=== PATIENT | female | born 1945 | race African-American/Black ===

== ENCOUNTER 2016-03-26 12:48 | Emergency (ER) | payer OTHER, MEDICAID ==
[~2016-03-26] VITALS: Ht 157.5 cm; Wt 70.3 kg
[2016-03-26 12:48] VITALS: BP 142/48; PULSE 86; RESP 16; TEMP 98.2; O2SAT 93
[2016-03-26] MEDS ORDERED: LIDOCAINE/EPI 1% 1:100000 20 ML VIAL INJ ONE (13:15)
[2016-03-26 13:55] LABS: BASOPHILS % (AUTO) 0.5 % (0.0-2.0); EOSINOPHILS # (AUTO) 0.3 K/uL (0.0-0.4); HEMATOCRIT 32.1 % (36-48); HEMOGLOBIN 10.6 g/dL (12.0-16.0); LYMPHOCYTES # (AUTO) 0.5 K/uL (1.0-5.5); LYMPHOCYTES % (AUTO) 7.9 % (20.5-51.5); MEAN CORPUSCULAR HEMOGLOBIN 30 pg (27-31); MEAN CORPUSCULAR HGB CONC 33 % (32-36); MEAN CORPUSCULAR VOLUME 90 fL (79.0-98.0); MONOCYTES # (AUTO) 0.8 K/uL (0.0-1.0); MONOCYTES % (AUTO) 12.1 % (1.7-9.3); NEUTROPHILS # (AUTO) 5.2 K/uL (1.8-7.7); NEUTROPHILS % (AUTO) 74.5 % (40.0-70.0); PLATELET COUNT (AUTO) 194 K/uL (130-430); RED BLOOD CELL COUNT(AUTO) 3.56 MIL/uL (4.2-6.2); RED CELL DISTRIBUTION WIDTH 18.7 % (9.0-15.0); WHITE BLOOD COUNT (AUTO) 6.8 K/uL (4.8-10.8)
[2016-03-26 13:58] LABS: CALCIUM 9.2 mg/dL (8.4-11.0); CREATININE 3.49 mg/dL (0.55-1.30); POTASSIUM 4.6 mmol/L (3.5-5.1)
[2016-03-26 15:43] LABS: INR 1.2 (0.8-1.2); PROTHROMBIN TIME 12.9 SECS (9.5-12.5)
[2016-03-26 18:00] VITALS: BP 122/51; PULSE 84; RESP 16; TEMP 98.2; O2SAT 96
== END 2016-03-26 18:00 | disposition short-term general hospital (02) ==
LOC: SED 12:48
DX: T82.838A Hemorrhage due to vascular prosthetic devices, implants and grafts, initial encounter (principal); N18.6 End stage renal disease; Z99.2 Dependence on renal dialysis
CPT/HCPCS: 36415; 80048; 85025; 85610-TC; 85730-TC; 93005; 99285

== ENCOUNTER 2016-03-30 07:04 | Inpatient (IN) | payer OTHER, MEDICAID ==
[~2016-03-30] VITALS: Ht 157.5 cm; Wt 49.9 kg
[2016-03-30 07:04] VITALS: BP 117/47; PULSE 85; RESP 17; TEMP 96.3; O2SAT 95
--- NOTE | 2016-03-30 07:04 | NUR ---
SEKOU Bolanos from [facility] for low blood sugar, 29. Give amp D50 by EMS, with improvement to 129. Pt placed in bed 5
--- NOTE | 2016-03-30 07:16 | NUR ---
Pt BIB ALS and placed to ER bed 05, placed on front desk monitor. Pt s/p Hypoglycemia, initial bs 29, given D50 in ambulance. Pt currently AAOx2, baseline for pt. Even and non-labored respirations, BBS clear. BS currently 135. Denies LOC, C/P, or SOB. Pt's at bedside.
--- NOTE | 2016-03-30 07:16 | NUR ---
Note undone in EDM - 03/30/16 at 1028 by PERI Pt BIB ALS and placed to ER bed 05, placed on cardiac monitor technician. Pt s/p Hypoglycemia, initial bs 29, given D50 in ambulance. Pt currently AAOx4, even and non-labored respirations, BBS clear. BS currently 135. Denies LOC, C/P, or SOB. Pt's at bedside.
--- NOTE | 2016-03-30 07:25 | NUR ---
Dr. Ramirez at bedside to assess pt.
--- NOTE | 2016-03-30 07:25 | NUR ---
Dr. Bañuelos at bedside for evaluation
--- NOTE | 2016-03-30 07:30 | NUR ---
Meal tray provided. at bedside to assist.
--- NOTE | 2016-03-30 07:40 | NUR ---
Lab at bedside to draw blood specimen.
[2016-03-30 08:09] LABS: BASOPHILS # (AUTO) 0.1 K/uL (0.0-0.2); BASOPHILS % (AUTO) 0.6 % (0.0-2.0); EOSINOPHILS % (AUTO) 0.2 % (0.0-4.0); HEMATOCRIT 42.8 % (36-48); HEMOGLOBIN 13.7 g/dL (12.0-16.0); LYMPHOCYTES # (AUTO) 0.7 K/uL (1.0-5.5); LYMPHOCYTES % (AUTO) 6.5 % (20.5-51.5); MEAN CORPUSCULAR HEMOGLOBIN 29 pg (27-31); MEAN CORPUSCULAR HGB CONC 32 % (32-36); MEAN CORPUSCULAR VOLUME 90 fL (79.0-98.0); MONOCYTES # (AUTO) 0.8 K/uL (0.0-1.0); MONOCYTES % (AUTO) 7.6 % (1.7-9.3); NEUTROPHILS # (AUTO) 9.1 K/uL (1.8-7.7); NEUTROPHILS % (AUTO) 85.1 % (40.0-70.0); PLATELET COUNT (AUTO) 201 K/uL (130-430); RED BLOOD CELL COUNT(AUTO) 4.74 MIL/uL (4.2-6.2); RED CELL DISTRIBUTION WIDTH 18.3 % (9.0-15.0); WHITE BLOOD COUNT (AUTO) 10.7 K/uL (4.8-10.8)
[2016-03-30 08:14] LABS: ANION GAP 13 (5-15); CALCIUM 9.9 mg/dL (8.4-11.0); CHLORIDE 96 mmol/L (98-107); GLUCOSE 118 mg/dL (70-99); INR 1.1 (0.8-1.2); POTASSIUM 5.6 mmol/L (3.5-5.1); SODIUM SERUM 136 mmol/L (136-145); UREA NITROGEN, BLOOD 44 mg/dL (8-21)
[2016-03-30 08:25] LABS: GFR AFRICAN AMERICAN 10 mL/min (>90)
[2016-03-30 08:30] LABS: ALANINE AMINOTRANSFERASE 33 U/L (12-78); ALBUMIN 4.6 g/dL (3.4-4.8); ASPARTATE AMINOTRANSFERASE 26 U/L (10-37); FREE T4 (FREE THYROXINE) 1.2 ng/dL (0.6-1.6); TOTAL BILIRUBIN 0.5 mg/dL (0.0-1.0); TOTAL PROTEIN, SERUM 9.1 g/dL (6.4-8.3)
[2016-03-30 08:31] LABS: ALCOHOL, BLOOD < 3 mg/dL (<10)
--- NOTE | 2016-03-30 09:00 | NUR ---
Pt resting calmly, even and non-labored respirations. Denies c/o pain or discomfort.
[2016-03-30] MEDS ORDERED: ASPIRIN 81 MG TAB.CHEW PO ONE (10:00)
[2016-03-30] MEDS ORDERED: BISACODYL 5 MG TABLET.DR (DULCOLAX) PO ONE (10:15)
--- NOTE | 2016-03-30 10:26 | NUR ---
Patient will be admitted to care of Dr. Rodriguez. Admitted to Med/Surg unit. Will go to room 134A. Summary report printed. Report given to YONATAHN Hernandez.
--- NOTE | 2016-03-30 10:29 | NUR ---
ADMISSION NOTE Received patient from ER via gurney. Patient admitted with diagnosis of ESRD. Patient is awake, alert, oriented X 1-2. Patient oriented to hospital room, call light, toileting, pain management and safety-teach back done. Patient informed that Mary will be Med/Surg nurse and that their room number is 134A. Personal belongings checked and Belongings List documented. Call light within reach.
[2016-03-30 10:42] VITALS: BP 154/81; PULSE 87; RESP 17; TEMP 96.6; O2SAT 95
[2016-03-30] MEDS ORDERED: GLUCOSE 15 GM GEL (in 37.5 GM TUBE) PO PRN ×2 (10:45)
[2016-03-30] MEDS ORDERED: DEXTROSE 50%-WATER 50 ML DISP.SYRIN IVP PRN ×2 (10:45)
[2016-03-30] MEDS ORDERED: ASPI-859 PO (11:14)
[2016-03-30] MEDS ORDERED: LOSA100T11 PO (11:14)
[2016-03-30] MEDS ORDERED: CALC667T5 PO (11:14)
[2016-03-30] MEDS ORDERED: HYDR100T25 PO (11:14)
[2016-03-30] MEDS ORDERED: SSREG SUBCUT (11:14)
[2016-03-30] MEDS ORDERED: BISA-79 PO (11:14)
[2016-03-30] MEDS ORDERED: INSU100V9 SUBCUT (11:14)
[2016-03-30] MEDS ORDERED: NATE120T PO (11:14)
[2016-03-30] MEDS ORDERED: NIFE60TA7 PO (11:14)
[2016-03-30] MEDS ORDERED: LACT10SO6 PO (11:14)
[2016-03-30] MEDS ORDERED: CLON0.3T PO (11:14)
[2016-03-30] MEDS ORDERED: DONE10TA37 PO (11:14)
[2016-03-30] MEDS ORDERED: CARV6.2554 PO (11:14)
[2016-03-30] MEDS ORDERED: MINO2.5T PO (11:14)
[2016-03-30] MEDS ORDERED: ATOR10TA68 PO (11:14)
[2016-03-30] MEDS ORDERED: OMEP20CA10 PO (11:14)
--- NOTE | 2016-03-30 11:22 | NUR ---
CONSULTATION WAS CALLED [phone] FOR DOCTOR MEDARDO , DOCTOR COVERING IS DEEJAY THE REASON FOR CONSUL IS ESRD SPOKE TO JÚNIOR
--- NOTE | 2016-03-30 11:25 | NUR ---
Rounds: Pt laying flat in bed and sleeping in bed. No acute signs of distress noted. Pt is arousbale to name and firm tapping. Pt remains confused A&Ox1 to name. Fall precautions in place. Call light in reach. Bed alarm on. Continue to monitor.
[2016-03-30 12:00] VITALS: BP 158/75; PULSE 84; RESP 20; TEMP 96.9; O2SAT 97
--- NOTE | 2016-03-30 13:20 | NUR ---
Rounds: Pt sitting up in bed and eating lunch with full assist from PHARMACY OPERATIONS SPECIALIST. Pt is able to swallow well at this time. No BM noted. Call light in reach. Continue to monitor.
[2016-03-30] MEDS ORDERED: ONDANSETRON HCL 4 MG/2 ML VIAL IVP PRN (15:15)
[2016-03-30] MEDS ORDERED: MORPHINE 2 MG/ML INJ. SYRINGE IVP PRN (15:15)
[2016-03-30] MEDS ORDERED: POTASSIUM CHLORIDE 10 MEQ TAB.PRT.SR PO PRN (15:15)
[2016-03-30] MEDS ORDERED: BISACODYL 5 MG TABLET.DR (DULCOLAX) PO PRN (15:15)
[2016-03-30] MEDS ORDERED: ACETAMINOPHEN 325 MG TABLET PO PRN (15:15)
[2016-03-30] MEDS ORDERED: MAGNESIUM SULFATE 50 ML IV PRN (15:15)
[2016-03-30] MEDS ORDERED: LORazepam 2 MG/ML VIAL IVP PRN (15:15)
[2016-03-30] MEDS ORDERED: DOCUSATE SODIUM 100 MG CAPSULE PO PRN (15:15)
--- NOTE | 2016-03-30 15:39 | NUR ---
consultation was called [phone] for doctor jon miller chf, elev trop and spoke to vesta
--- NOTE | 2016-03-30 15:40 | NUR ---
Rounds: Pt sitting semi-fowlers in bed. No acute signs of distress noted. Pt moved to 132A. Tolerates well. Denies pain. Call light in reach.
[2016-03-30 16:00] VITALS: BP 121/75; PULSE 98; RESP 18; TEMP 98; O2SAT 93
[2016-03-30] MEDS: NATEGLINIDE 120 MG TABLET PO SCH (17:20)
[2016-03-30] MEDS: CALCIUM ACETATE 667 MG CAP PO SCH (17:20)
[2016-03-30] MEDS: INSULIN REGULAR, HUMAN 100 UNITS/ML, 10 ML VIAL (novoLIN R) SUBCUT PRN ×2 (17:31→20:49)
--- NOTE | 2016-03-30 17:50 | NUR ---
Rounds: Pt sitting semi-fowlers in bed. No acute signs of distress noted. Dialysis in progress. Fall precautions in place. Blood sugar checked and coverage given. Continue to monitor.
[2016-03-30] MEDS ORDERED: DONEPEZIL HCL 5 MG TABLET (ARICEPT) PO SCH (18:00)
--- NOTE | 2016-03-30 18:55 | NUR ---
Rounds: Pt has BM. Cleaned and repositioned in bed. No acute signs of distress noted. Call light in reach. No acute signs of bleeding noted to LUE AV shunt. Call light in reach. Endorse plan of care to NOC RN.
[2016-03-30 19:40] VITALS: BP 172/79; PULSE 111; RESP 20; TEMP 98.1; O2SAT 97
--- NOTE | 2016-03-30 19:40 | NUR ---
INITIAL NOTES; HEMODIALYSIS JUST COMPLETED, REMOVED 2 LITER BY GARCIA-NURSE AT BEDSIDE - Pt is a/ox1, confused. Vital signs 98.1, 20, 111, 172/79, M9YAE=61% R/A. NOany pain,sob,or any acute distress this time. Lung sounds clear throughout all lobes. Left upper arm AV shunt both thrill and bruits present. Abdomen soft & nondistended, bs present. IV site of rt a/c patent, no s/s any infiltration noted. Jose lower pedis present upon palp. Fall precaution in place. All safety measures in place. Unable to discuss poc due to aloc,no family is at bedside. All safety measures in place. Fall precaution in place. Bed alarmed,low position,side rails x3. Place near Nurses' station. Call light w/in reach. Continue to monitor pt.
--- NOTE | 2016-03-30 19:54 | NUR ---
INCONTINENT OF LARGER SOFT BOWEL MOVT -PROVIDED PERINEAL CARE AND CHANGED ALL LINEN,SHEET, AND GOWN. NOW, PT IS CLEANED AND DRY.
--- NOTE | 2016-03-30 20:13 | NUR ---
PAGED PAGED HECTOR HORTA AT [phone] SPOKE WITH DARRAIN.
--- NOTE | 2016-03-30 20:14 | NUR ---
DR. GREGG INFORMED AND AWARED OF ELEVATED TROPONIN=0.324, NO FURTHER ODER PER MD THIS TIME.
[2016-03-30] MEDS: hydrALAZINE HCL 25 MG TABLET PO SCH (20:44)
[2016-03-30] MEDS: cloNIDine HCL 0.1 MG TABLET PO SCH (20:44)
[2016-03-30] MEDS: CARVEDILOL 6.25 MG TABLET (COREG) PO SCH (20:45)
[2016-03-30] MEDS: MINOXIDIL 10 MG TABLET (LONITEN) PO SCH (20:45)
--- NOTE | 2016-03-30 20:45 | NUR ---
ROUNDS; -Gave po medications crushed with applesauce, pt tolerated. Fall precaution in place. All safety measures in place. All safety measures in place. Fall precaution in place. Bed alarmed,low position,side rails x3. Place near Nurses' station. Call light w/in reach. Continue to monitor pt.
[2016-03-30] MEDS: HEPARIN SODIUM,PORCINE 5000 UNITS/ML VIAL SUBCUT SCH (20:46)
[2016-03-30] MEDS ORDERED: ZOLPIDEM TARTRATE 5 MG TABLET PO PRN (21:00)
--- NOTE | 2016-03-30 22:35 | NUR ---
AGITATION -GAVE ATIVAN 2MG IVP. PT IS AGITATING. ALL SAFETY MEASURES IN PLACE. CALL LIGHT W/IN REACH. CONTINUE TO MONITOR PT.
--- NOTE | 2016-03-30 23:50 | NUR ---
ROUNDS; -Pt is resting. No s/s any acute distress noted. Fall precaution in place. All safety measures in place. All safety measures in place. Fall precaution in place. Bed alarmed,low position,side rails x3. Place near Nurses' station. Call light w/in reach. Continue to monitor pt.
[2016-03-31] VITALS: BP 118/55; PULSE 94; RESP 16; TEMP 97.6; O2SAT 90
[2016-03-31 04:00] VITALS: BP 101/53; PULSE 88; RESP 16; TEMP 96.9; O2SAT 100
--- NOTE | 2016-03-31 05:42 | NUR ---
ROUNDS;BLOOD SUGAR IS 120-NO SSI COVERAGE-INCONTINENT OF LARGE SOFT BOWEL MOVT -Pt awakes, confused. Dominique and Sugey provided perineal care.Now, pt is cleaned and dry. No s/s any acute distress noted. Fall precaution in place. All safety measures in place. All safety measures in place. Fall precaution in place. Bed alarmed,low position,side rails x3. Place near Nurses' station. Call light w/in reach. Continue to monitor pt.
[2016-03-31] MEDS: NATEGLINIDE 120 MG TABLET PO SCH ×2 (06:32→11:45)
--- NOTE | 2016-03-31 06:53 | NUR ---
CLOSING NOTES; - Pt is resting. No s/s any pain,sob,or any acute distress this time. Left upper arm AV shunt. IV site of rt a/c patent, no s/s any infiltration noted. All safety measures in place. Fall precaution in place. Bed alarmed,low position,side rails x3. Place near Nurses' station. Call light w/in reach.
[2016-03-31 07:41] LABS: CREATININE 4.2 mg/dL (0.55-1.30); POTASSIUM 4.4 mmol/L (3.5-5.1)
[2016-03-31 07:53] LABS: BASOPHILS # (AUTO) 0.1 K/uL (0.0-0.2); BASOPHILS % (AUTO) 0.8 % (0.0-2.0); EOSINOPHILS # (AUTO) 0.3 K/uL (0.0-0.4); HEMATOCRIT 33.7 % (36-48); HEMOGLOBIN 11.2 g/dL (12.0-16.0); LYMPHOCYTES # (AUTO) 0.9 K/uL (1.0-5.5); MEAN CORPUSCULAR HEMOGLOBIN 30 pg (27-31); MEAN CORPUSCULAR HGB CONC 33 % (32-36); MEAN CORPUSCULAR VOLUME 90 fL (79.0-98.0); MONOCYTES # (AUTO) 0.9 K/uL (0.0-1.0); MONOCYTES % (AUTO) 9.7 % (1.7-9.3); NEUTROPHILS # (AUTO) 7.1 K/uL (1.8-7.7); NEUTROPHILS % (AUTO) 76.5 % (40.0-70.0); PLATELET COUNT (AUTO) 204 K/uL (130-430); RED BLOOD CELL COUNT(AUTO) 3.73 MIL/uL (4.2-6.2); RED CELL DISTRIBUTION WIDTH 18.2 % (9.0-15.0); WHITE BLOOD COUNT (AUTO) 9.3 K/uL (4.8-10.8)
[2016-03-31 08:03] LABS: THYROID STIMULATING HORMONE 3.35 uIu/mL (0.36-3.74)
[2016-03-31] MEDS: hydrALAZINE HCL 25 MG TABLET PO SCH (08:05)
[2016-03-31] MEDS: CARVEDILOL 6.25 MG TABLET (COREG) PO SCH (08:06)
[2016-03-31] MEDS: cloNIDine HCL 0.1 MG TABLET PO SCH (08:07)
[2016-03-31] MEDS: CALCIUM ACETATE 667 MG CAP PO SCH ×2 (08:08→11:45)
[2016-03-31] MEDS: MINOXIDIL 10 MG TABLET (LONITEN) PO SCH (08:08)
--- NOTE | 2016-03-31 08:10 | NUR ---
Am Rounds: Received pt sitting up in bed. No acute signs of distress noted. A&Ox1 to name. Pt is able to follow simple commands and answer simple questions at times. Assisted pt up to chair for breakfast with full assist. IV intact to LUE with no redness or swelling noted to site. Call light in reach. Bed alarm on. Continue to monitor.
[2016-03-31] MEDS: HEPARIN SODIUM,PORCINE 5000 UNITS/ML VIAL SUBCUT SCH (08:12)
[2016-03-31 08:20] VITALS: BP 140/67; PULSE 91; RESP 16; TEMP 96.8; O2SAT 94
[2016-03-31] MEDS ORDERED: ASPIRIN 81 MG TABLET(ECOTRIN) PO SCH (09:00)
[2016-03-31] MEDS ORDERED: ATORVASTATIN 10 MG TABLET PO SCH (09:00)
[2016-03-31] MEDS ORDERED: LOSARTAN POTASSIUM 50 MG TABLET (COZAAR) PO SCH (09:00)
[2016-03-31] MEDS ORDERED: NIFEDIPINE 60 MG TABLET.SA (PROCARDIA XL 60 MG) PO SCH (09:00)
--- NOTE | 2016-03-31 09:28 | NUR ---
Nutrition Update Alexander Scale 10 noted. Pt admitted for ESRD . Diet: renal standard BMI: 20.1 kg/m2 RD to follow per nutrition care standards.
--- NOTE | 2016-03-31 09:50 | NUR ---
CALLED [facility] RE: TO INFORM OF PT'S DC ORDER TO GO BACK THERE AND TO REQUEST FOR A COMPUTER AIDED DESIGN OPERATOR SERVICE. SPOKE TO GELY. COMPUTER AIDED DESIGN OPERATOR TIME IS BETWEEN 1200 - 1230
[2016-03-31] MEDS: INSULIN REGULAR, HUMAN 100 UNITS/ML, 10 ML VIAL (novoLIN R) SUBCUT PRN (11:47)
[2016-03-31 12:03] VITALS: BP 116/55; PULSE 87; RESP 18; TEMP 97.7; O2SAT 98
--- NOTE | 2016-03-31 12:09 | NUR ---
Spoke with Daughter: Spoke with Daughter Celina, aware that pt will be discharged home and to follow up with cardiothoracic icu rn in 1 week. No other needs noted.
--- NOTE | 2016-03-31 12:25 | NUR ---
D/C Patient Patient given medication reconciliation form and D/C instructions. Exit Care provided. Patient's daughter Celina Sidhu verbalized understanding. MD discussed with patient the results and treatment provided. Patient in stable condition, ID band removed. IV catheter removed, intact and dressing applied, no active bleeding. No Rx given. Discharge instructions also given to Isadora from [facility], pt assisted into van back to [facility]. All belongings sent with patient.
--- NOTE | 2016-04-01 12:06 | NUR ---
Discharge Follow Up Phone Call: FLATWORK SUPERVISOR called and attempted to speak with pt's dtr, Celina ([phone]), but the number is no longer in service. FLATWORK SUPERVISOR called pt's residence, [facility] ([phone]), and spoke with Nurse, Abby. [facility] Nurse states that pt is doing well; there are no questions regarding discharge or medication instructions; pt's family schedules pt's PCP appointments; [facility] staff assists pt with checking blood sugar as directed by PCP. [facility] Nurse did not express any other needs or concerns and denied the need for additional follow up at this time. No further follow up phone calls required at this time.
== END 2016-03-31 12:25 | DRG 291 ==
LOC: SED 07:04 → SMU 10:03
PROVIDERS: ADMIT General Practice; ATTEND General Practice
PROC: 5A1D00Z (ICD-10-PCS; principal; 2016-03-30)
DX: I13.2 Hypertensive heart and chronic kidney disease with heart failure and with stage 5 chronic kidney disease, or end stage renal disease (principal); G93.41 Metabolic encephalopathy; I50.41 Acute combined systolic (congestive) and diastolic (congestive) heart failure; N18.6 End stage renal disease; E11.649 Type 2 diabetes mellitus with hypoglycemia without coma; E11.22 Type 2 diabetes mellitus with diabetic chronic kidney disease; E11.65 Type 2 diabetes mellitus with hyperglycemia; M16.0 Bilateral primary osteoarthritis of hip; G30.9 Alzheimer's disease, unspecified; F02.80 Dementia in other diseases classified elsewhere, unspecified severity, without behavioral disturbance, psychotic disturbance, mood disturbance, and anxiety; Z96.642 Presence of left artificial hip joint; E87.5 Hyperkalemia; E78.5 Hyperlipidemia, unspecified; Z79.82 Long term (current) use of aspirin; Z79.4 Long term (current) use of insulin; Z99.2 Dependence on renal dialysis; Z99.3 Dependence on wheelchair; Z79.899 Other long term (current) drug therapy
CPT/HCPCS: 36415; 71010; 74000-TC; 80048; 80053; 80061; 82140-TC; 82962; 83036; 83605; 83735-TC; 83880; 84439; 84443-TC; 84484; 85025; 85610-TC; 87040-TC; 87081; 90935; 93005; 93306; 99285; G0482; J1644; J1815; J2060; J7030

== ENCOUNTER 2016-11-02 14:04 | Inpatient (IN) | payer OTHER, MEDICAID ==
[~2016-11-02] VITALS: Ht 154.9 cm; Wt 54.4 kg
[~2016-11-02 14:04] MED LIST: ASPI-859 PO; ATOR10TA68 PO; BISA-79 PO; CALC667T5 PO; CARV6.2554 PO; CLON0.3T PO; DONE10TA37 PO; HYDR100T25 PO; LACT10SO6 PO; LOSA100T11 PO; MINO2.5T PO; NATE120T PO; NIFE60TA7 PO; OMEP20CA10 PO; SSREG SUBCUT
[2016-11-02 14:05] VITALS: BP_SYST 103
[2016-11-02 16:10] LABS: HEMATOCRIT 37.1 % (36-48); HEMOGLOBIN 12.3 g/dL (12.0-16.0); MEAN CORPUSCULAR HEMOGLOBIN 30 pg (27-31); MEAN CORPUSCULAR HGB CONC 33 % (32-36); MEAN CORPUSCULAR VOLUME 91 fL (79.0-98.0); PLATELET COUNT (AUTO) 394 K/uL (130-430); RED BLOOD CELL COUNT(AUTO) 4.06 MIL/uL (4.2-6.2); RED CELL DISTRIBUTION WIDTH 16.6 % (9.0-15.0)
[2016-11-02 16:12] LABS: INR 1.1 (0.8-1.2); PROTHROMBIN TIME 12.2 SECS (9.5-12.5)
[2016-11-02 16:14] LABS: CREATININE 4.97 mg/dL (0.55-1.30); POTASSIUM 5.3 mmol/L (3.5-5.1)
[2016-11-02] MEDS ORDERED: KETOROLAC TROMETHAMINE 30 MG VIAL IVP ONE (16:15)
[2016-11-02 16:18] LABS: WHITE BLOOD COUNT (AUTO) 34.5 K/uL (4.8-10.8)
[2016-11-02] MEDS ORDERED: PIPERACILLIN/TAZO 3.375 GM in NS 50 ML IV ONE (16:30)
[2016-11-02] MEDS ORDERED: LEVOFLOXACIN 500 MG/D5W 100 ML IV ONE (16:30)
[2016-11-02 16:32] LABS: ALBUMIN 4.2 g/dL (3.4-4.8); TOTAL BILIRUBIN 0.5 mg/dL (0.0-1.0)
[2016-11-02] MEDS ORDERED: ASPIRIN 81 MG TAB.CHEW PO ONE (16:45)
[2016-11-02] MEDS ORDERED: PIPERACILLIN/TAZOBACTAM 3.375 GM/VIAL (ZOSYN) IV ONE (16:49)
[2016-11-02] MEDS ORDERED: SODIUM POLYSTYRENE SULFONATE 15 GM/60 ML UDBTL PO ONE (17:00)
[2016-11-02] MEDS ORDERED: cefTRIAXone 1 GM IVPB PREMIX 50 ML IV ONE (17:00)
[2016-11-02] MEDS ORDERED: ACETAMINOPHEN 500 MG TABLET PO ONE (17:00)
[2016-11-02] MEDS ORDERED: metroNIDAZOLE 500 mg/NS 100 ML IV ONE (17:00)
[2016-11-02 17:11] LABS: ATYPICAL LYMPHOCYTES % 0 % (0-0); BAND % (MANUAL) 7 % (0-6); BASOPHILS % (MANUAL) 0 % (0-2); EOSINOPHILS % (MANUAL) 0 % (0-7); LYMPHOCYTES % (MANUAL) 2 % (20-46); MONOCYTES % (MANUAL) 2 % (0-11)
[2016-11-02 17:12] LABS: METAMYELOCYTES % 1 % (0-0)
[2016-11-02] MEDS ORDERED: LOSARTAN POTASSIUM 50 MG TABLET (COZAAR) PO ONE (17:30)
[2016-11-02] MEDS ORDERED: NIFEDIPINE 60 MG TABLET.SA (PROCARDIA XL 60 MG) PO ONE (17:30)
[2016-11-02] MEDS ORDERED: BISACODYL 5 MG TABLET.DR (DULCOLAX) PO PRN (17:30)
[2016-11-02] MEDS ORDERED: OMEPRAZOLE 20 MG CAPSULE.DR (PriLOSEC) PO ONE (17:30)
[2016-11-02] MEDS ORDERED: ASPIRIN 81 MG TABLET(ECOTRIN) PO ONE (17:30)
[2016-11-02] MEDS ORDERED: SITA100T7 PO (17:57)
[2016-11-02 18:00] VITALS: BP_SYST 103
[2016-11-02] MEDS: NATEGLINIDE 120 MG TABLET PO SCH (18:00)
[2016-11-02 19:52] VITALS: BP_SYST 114
[2016-11-02] MEDS ORDERED: ONDANSETRON HCL 4 MG/2 ML VIAL IVP PRN (20:45)
[2016-11-02] MEDS: hydrALAZINE HCL 25 MG TABLET PO SCH (21:00)
[2016-11-02] MEDS: CARVEDILOL 6.25 MG TABLET (COREG) PO SCH (21:00)
[2016-11-02] MEDS: NACL 0.9% 1,000 ML IV SCH (21:20)
[2016-11-02] MEDS: MIDODRINE HCL 5 MG TABLET (PROAMATINE) PO SCH (22:17)
[2016-11-02] MEDS: NORMAL SALINE 5 ML DISP.SYRIN IVF SCH (22:19)
[2016-11-03] MEDS ORDERED: metroNIDAZOLE 500 mg/NS 100 ML IV ONE ×2 (00:20→06:28)
[2016-11-03] MEDS: metroNIDAZOLE 500 mg/NS 100 ML IV SCH ×4 (00:49→21:08)
[2016-11-03 02:00] VITALS: BP_SYST 124
[2016-11-03 03:34] VITALS: BP_SYST 142
[2016-11-03] MEDS: NORMAL SALINE 5 ML DISP.SYRIN IVF SCH ×3 (06:29→21:10)
[2016-11-03] MEDS: NATEGLINIDE 120 MG TABLET PO SCH ×3 (06:29→16:51)
[2016-11-03 08:31] VITALS: BP_SYST 134
[2016-11-03 08:46] LABS: BASOPHILS # (AUTO) 0.1 K/uL (0.0-0.2); BASOPHILS % (AUTO) 0.3 % (0.0-2.0); EOSINOPHILS # (AUTO) 0.1 K/uL (0.0-0.4); EOSINOPHILS % (AUTO) 0.3 % (0.0-4.0); HEMATOCRIT 35.9 % (36-48); HEMOGLOBIN 11.9 g/dL (12.0-16.0); LYMPHOCYTES # (AUTO) 0.6 K/uL (1.0-5.5); LYMPHOCYTES % (AUTO) 1.8 % (20.5-51.5); MEAN CORPUSCULAR HEMOGLOBIN 30 pg (27-31); MEAN CORPUSCULAR HGB CONC 33 % (32-36); MEAN CORPUSCULAR VOLUME 91 fL (79.0-98.0); MONOCYTES # (AUTO) 1.4 K/uL (0.0-1.0); MONOCYTES % (AUTO) 4.3 % (1.7-9.3); NEUTROPHILS # (AUTO) 30.1 K/uL (1.8-7.7); NEUTROPHILS % (AUTO) 93.3 % (40.0-70.0); PLATELET COUNT (AUTO) 394 K/uL (130-430); RED BLOOD CELL COUNT(AUTO) 3.94 MIL/uL (4.2-6.2)
[2016-11-03 08:48] LABS: WHITE BLOOD COUNT (AUTO) 32.3 K/uL (4.8-10.8)
[2016-11-03] MEDS: MIDODRINE HCL 5 MG TABLET (PROAMATINE) PO SCH ×3 (09:00→21:00)
[2016-11-03] MEDS: OMEPRAZOLE 20 MG CAPSULE.DR (PriLOSEC) PO SCH (09:00)
[2016-11-03] MEDS: LOSARTAN POTASSIUM 50 MG TABLET (COZAAR) PO SCH (09:00)
[2016-11-03] MEDS: ATORVASTATIN 10 MG TABLET PO SCH (09:00)
[2016-11-03] MEDS: ASPIRIN 81 MG TABLET(ECOTRIN) PO SCH (09:00)
[2016-11-03] MEDS: hydrALAZINE HCL 25 MG TABLET PO SCH ×3 (11:04→21:00)
[2016-11-03] MEDS: CARVEDILOL 6.25 MG TABLET (COREG) PO SCH ×2 (11:05→21:00)
[2016-11-03] MEDS: NIFEDIPINE 60 MG TABLET.SA (PROCARDIA XL 60 MG) PO SCH (11:05)
[2016-11-03 12:00] VITALS: BP_SYST 152
[2016-11-03] MEDS: PIPERACILLIN/TAZO 2.25G/DEX-IS 50 ML IV SCH ×3 (12:57→23:35)
[2016-11-03 16:29] VITALS: BP_SYST 154
[2016-11-03] MEDS: INSULIN ASPART 100 UNITS/ML, 10 ML VIAL (NovoLOG) SUBCUT PRN (16:46)
[2016-11-03] MEDS ORDERED: cefTRIAXone 1 GM in D5W 50 ML IV SCH (17:00)
[2016-11-03] MEDS: NACL 0.9% 1,000 ML IV SCH (19:57)
[2016-11-03 20:01] VITALS: BP_SYST 112
[2016-11-04 00:22] VITALS: BP_SYST 140
[2016-11-04 00:45] VITALS: BP_SYST 140
[2016-11-04] MEDS: PIPERACILLIN/TAZO 2.25G/DEX-IS 50 ML IV SCH ×3 (05:03→17:59)
[2016-11-04] MEDS: NORMAL SALINE 5 ML DISP.SYRIN IVF SCH ×3 (05:05→23:01)
[2016-11-04 05:43] VITALS: BP_SYST 139
[2016-11-04] MEDS: NATEGLINIDE 120 MG TABLET PO SCH ×3 (06:11→17:59)
[2016-11-04] MEDS: metroNIDAZOLE 500 mg/NS 100 ML IV SCH ×3 (06:11→22:53)
[2016-11-04 07:12] LABS: BASOPHILS # (AUTO) 0.1 K/uL (0.0-0.2); BASOPHILS % (AUTO) 0.4 % (0.0-2.0); EOSINOPHILS # (AUTO) 0.3 K/uL (0.0-0.4); EOSINOPHILS % (AUTO) 1.1 % (0.0-4.0); NEUTROPHILS % (AUTO) 90.2 % (40.0-70.0)
[2016-11-04 07:20] LABS: HEMATOCRIT 36.7 % (36-48); HEMOGLOBIN 12.2 g/dL (12.0-16.0); LYMPHOCYTES # (AUTO) 0.8 K/uL (1.0-5.5); LYMPHOCYTES % (AUTO) 2.9 % (20.5-51.5); MEAN CORPUSCULAR HEMOGLOBIN 30 pg (27-31); MEAN CORPUSCULAR HGB CONC 33 % (32-36); MEAN CORPUSCULAR VOLUME 92 fL (79.0-98.0); MONOCYTES # (AUTO) 1.5 K/uL (0.0-1.0); MONOCYTES % (AUTO) 5.4 % (1.7-9.3); NEUTROPHILS # (AUTO) 24.5 K/uL (1.8-7.7); PLATELET COUNT (AUTO) 418 K/uL (130-430); RED BLOOD CELL COUNT(AUTO) 4.01 MIL/uL (4.2-6.2); RED CELL DISTRIBUTION WIDTH 17.3 % (9.0-15.0); WHITE BLOOD COUNT (AUTO) 27.2 K/uL (4.8-10.8)
[2016-11-04 08:15] LABS: ALBUMIN 3.1 g/dL (3.4-4.8); CALCIUM 9.1 mg/dL (8.4-11.0); CREATININE 3.84 mg/dL (0.55-1.30); POTASSIUM 4.2 mmol/L (3.5-5.1); TOTAL BILIRUBIN 0.5 mg/dL (0.0-1.0)
[2016-11-04 08:20] VITALS: BP_SYST 159
[2016-11-04] MEDS: hydrALAZINE HCL 25 MG TABLET PO SCH ×3 (09:45→21:37)
[2016-11-04] MEDS: LOSARTAN POTASSIUM 50 MG TABLET (COZAAR) PO SCH (09:46)
[2016-11-04] MEDS: MIDODRINE HCL 5 MG TABLET (PROAMATINE) PO SCH ×3 (09:47→21:35)
[2016-11-04] MEDS: ATORVASTATIN 10 MG TABLET PO SCH (09:47)
[2016-11-04] MEDS: OMEPRAZOLE 20 MG CAPSULE.DR (PriLOSEC) PO SCH (09:47)
[2016-11-04] MEDS: NIFEDIPINE 60 MG TABLET.SA (PROCARDIA XL 60 MG) PO SCH (09:47)
[2016-11-04] MEDS: CARVEDILOL 6.25 MG TABLET (COREG) PO SCH ×2 (09:48→21:36)
[2016-11-04] MEDS: ASPIRIN 81 MG TABLET(ECOTRIN) PO SCH (09:48)
[2016-11-04 12:44] VITALS: BP_SYST 148
[2016-11-04 16:05] VITALS: BP_SYST 135
[2016-11-04] MEDS: VANCOMYCIN HCL 1 GM/NS PREMIX 250 ML IV SCH (17:00)
[2016-11-04] MEDS: INSULIN ASPART 100 UNITS/ML, 10 ML VIAL (NovoLOG) SUBCUT PRN (18:05)
[2016-11-04] MEDS ORDERED: VANCOMYCIN HCL 1000 MG/VIAL IV ONE (20:02)
[2016-11-04] MEDS: NACL 0.9% 1,000 ML IV SCH (20:30)
[2016-11-04] MEDS: MUPIROCIN 2% TOPICAL OINTMENT 22 GM TP SCH (21:00)
[2016-11-05] MEDS: PIPERACILLIN/TAZO 2.25G/DEX-IS 50 ML IV SCH ×5 (00:01→23:27)
[2016-11-05 00:15] VITALS: BP_SYST 134
[2016-11-05 04:48] VITALS: BP_SYST 125
[2016-11-05] MEDS: NORMAL SALINE 5 ML DISP.SYRIN IVF SCH ×3 (05:02→22:13)
[2016-11-05] MEDS: metroNIDAZOLE 500 mg/NS 100 ML IV SCH ×3 (05:40→22:13)
[2016-11-05] MEDS: NATEGLINIDE 120 MG TABLET PO SCH ×3 (06:06→16:47)
[2016-11-05 08:00] VITALS: BP_SYST 160
[2016-11-05] MEDS: MUPIROCIN 2% TOPICAL OINTMENT 22 GM TP SCH ×2 (09:33→22:13)
[2016-11-05] MEDS: CARVEDILOL 6.25 MG TABLET (COREG) PO SCH ×2 (09:35→20:17)
[2016-11-05] MEDS: LOSARTAN POTASSIUM 50 MG TABLET (COZAAR) PO SCH (09:36)
[2016-11-05] MEDS: MIDODRINE HCL 5 MG TABLET (PROAMATINE) PO SCH ×3 (09:36→20:18)
[2016-11-05] MEDS: ASPIRIN 81 MG TABLET(ECOTRIN) PO SCH (09:37)
[2016-11-05] MEDS: OMEPRAZOLE 20 MG CAPSULE.DR (PriLOSEC) PO SCH (09:37)
[2016-11-05] MEDS: ATORVASTATIN 10 MG TABLET PO SCH (09:38)
[2016-11-05] MEDS: hydrALAZINE HCL 25 MG TABLET PO SCH ×3 (09:38→20:17)
[2016-11-05] MEDS: NIFEDIPINE 60 MG TABLET.SA (PROCARDIA XL 60 MG) PO SCH (09:39)
[2016-11-05 11:40] LABS: BASOPHILS # (AUTO) 0.3 K/uL (0.0-0.2); BASOPHILS % (AUTO) 1.7 % (0.0-2.0); EOSINOPHILS # (AUTO) 0.2 K/uL (0.0-0.4); EOSINOPHILS % (AUTO) 1.2 % (0.0-4.0); HEMATOCRIT 40.7 % (36-48); HEMOGLOBIN 13.1 g/dL (12.0-16.0); LYMPHOCYTES # (AUTO) 0.7 K/uL (1.0-5.5); LYMPHOCYTES % (AUTO) 3.9 % (20.5-51.5); MEAN CORPUSCULAR HEMOGLOBIN 29 pg (27-31); MEAN CORPUSCULAR HGB CONC 32 % (32-36); MEAN CORPUSCULAR VOLUME 91 fL (79.0-98.0); MONOCYTES % (AUTO) 5.5 % (1.7-9.3); NEUTROPHILS # (AUTO) 16.8 K/uL (1.8-7.7); NEUTROPHILS % (AUTO) 87.7 % (40.0-70.0); PLATELET COUNT (AUTO) 395 K/uL (130-430); RED BLOOD CELL COUNT(AUTO) 4.47 MIL/uL (4.2-6.2); RED CELL DISTRIBUTION WIDTH 17.5 % (9.0-15.0)
[2016-11-05 12:00] VITALS: BP_SYST 160
[2016-11-05 15:34] VITALS: BP_SYST 138
[2016-11-05] MEDS: VANCOMYCIN HCL 1 GM/NS PREMIX 250 ML IV SCH (16:48)
[2016-11-05] MEDS: INSULIN ASPART 100 UNITS/ML, 10 ML VIAL (NovoLOG) SUBCUT PRN (17:02)
[2016-11-05] MEDS: NACL 0.9% 1,000 ML IV SCH (20:30)
[2016-11-06] VITALS (7 sets, daily range): BP systolic 137–163
[2016-11-06] MEDS: metroNIDAZOLE 500 mg/NS 100 ML IV SCH ×3 (05:03→22:29)
[2016-11-06] MEDS: NORMAL SALINE 5 ML DISP.SYRIN IVF SCH ×3 (05:06→22:30)
[2016-11-06] MEDS: PIPERACILLIN/TAZO 2.25G/DEX-IS 50 ML IV SCH ×4 (06:16→23:35)
[2016-11-06] MEDS: NATEGLINIDE 120 MG TABLET PO SCH ×3 (06:16→16:46)
[2016-11-06] MEDS: hydrALAZINE HCL 25 MG TABLET PO SCH ×3 (10:37→20:29)
[2016-11-06] MEDS: LOSARTAN POTASSIUM 50 MG TABLET (COZAAR) PO SCH (10:38)
[2016-11-06] MEDS: NIFEDIPINE 60 MG TABLET.SA (PROCARDIA XL 60 MG) PO SCH (10:39)
[2016-11-06] MEDS: OMEPRAZOLE 20 MG CAPSULE.DR (PriLOSEC) PO SCH (10:39)
[2016-11-06] MEDS: ATORVASTATIN 10 MG TABLET PO SCH (10:39)
[2016-11-06] MEDS: MIDODRINE HCL 5 MG TABLET (PROAMATINE) PO SCH ×3 (10:39→20:28)
[2016-11-06] MEDS: ASPIRIN 81 MG TABLET(ECOTRIN) PO SCH (10:40)
[2016-11-06] MEDS: CARVEDILOL 6.25 MG TABLET (COREG) PO SCH ×2 (10:40→20:28)
[2016-11-06] MEDS: MUPIROCIN 2% TOPICAL OINTMENT 22 GM TP SCH ×2 (10:48→20:30)
[2016-11-06] MEDS: VANCOMYCIN HCL 1 GM/NS PREMIX 250 ML IV SCH (16:47)
[2016-11-06] MEDS: INSULIN ASPART 100 UNITS/ML, 10 ML VIAL (NovoLOG) SUBCUT PRN (16:55)
[2016-11-06] MEDS: NACL 0.9% 1,000 ML IV SCH (20:30)
[2016-11-07 04:11] VITALS: BP_SYST 150
[2016-11-07] MEDS: PIPERACILLIN/TAZO 2.25G/DEX-IS 50 ML IV SCH ×3 (05:16→17:56)
[2016-11-07] MEDS: NORMAL SALINE 5 ML DISP.SYRIN IVF SCH ×3 (05:18→22:22)
[2016-11-07] MEDS: metroNIDAZOLE 500 mg/NS 100 ML IV SCH ×3 (05:49→22:06)
[2016-11-07] MEDS: NATEGLINIDE 120 MG TABLET PO SCH ×3 (06:23→17:16)
[2016-11-07 08:10] VITALS: BP_SYST 143
[2016-11-07] MEDS: OMEPRAZOLE 20 MG CAPSULE.DR (PriLOSEC) PO SCH (08:43)
[2016-11-07] MEDS: ASPIRIN 81 MG TABLET(ECOTRIN) PO SCH (08:44)
[2016-11-07] MEDS: ATORVASTATIN 10 MG TABLET PO SCH (08:44)
[2016-11-07] MEDS: MUPIROCIN 2% TOPICAL OINTMENT 22 GM TP SCH ×2 (08:44→22:11)
[2016-11-07] MEDS: MIDODRINE HCL 5 MG TABLET (PROAMATINE) PO SCH ×4 (08:44→22:07)
[2016-11-07 12:14] VITALS: BP_SYST 172
[2016-11-07] MEDS: NIFEDIPINE 60 MG TABLET.SA (PROCARDIA XL 60 MG) PO SCH (13:30)
[2016-11-07] MEDS: CARVEDILOL 6.25 MG TABLET (COREG) PO SCH ×3 (13:30→22:08)
[2016-11-07] MEDS: LOSARTAN POTASSIUM 50 MG TABLET (COZAAR) PO SCH (13:30)
[2016-11-07] MEDS: hydrALAZINE HCL 25 MG TABLET PO SCH ×4 (13:31→22:09)
[2016-11-07 16:00] VITALS: BP_SYST 167
[2016-11-07] MEDS: VANCOMYCIN HCL 1 GM/NS PREMIX 250 ML IV SCH (16:00)
[2016-11-07] MEDS: NACL 0.9% 1,000 ML IV SCH (22:22)
[2016-11-07 23:32] VITALS: BP_SYST 154
[2016-11-08] MEDS: PIPERACILLIN/TAZO 2.25G/DEX-IS 50 ML IV SCH ×3 (01:00→12:00)
[2016-11-08 04:08] VITALS: BP_SYST 152
[2016-11-08] MEDS: metroNIDAZOLE 500 mg/NS 100 ML IV SCH (05:21)
[2016-11-08] MEDS: INSULIN ASPART 100 UNITS/ML, 10 ML VIAL (NovoLOG) SUBCUT PRN (06:40)
[2016-11-08] MEDS: NORMAL SALINE 5 ML DISP.SYRIN IVF SCH (06:41)
[2016-11-08] MEDS: NATEGLINIDE 120 MG TABLET PO SCH ×2 (06:41→10:58)
[2016-11-08] MEDS: MIDODRINE HCL 5 MG TABLET (PROAMATINE) PO SCH (10:57)
[2016-11-08] MEDS: NIFEDIPINE 60 MG TABLET.SA (PROCARDIA XL 60 MG) PO SCH (10:58)
[2016-11-08] MEDS: ASPIRIN 81 MG TABLET(ECOTRIN) PO SCH (10:58)
[2016-11-08] MEDS: ATORVASTATIN 10 MG TABLET PO SCH (10:59)
[2016-11-08] MEDS: OMEPRAZOLE 20 MG CAPSULE.DR (PriLOSEC) PO SCH (10:59)
[2016-11-08] MEDS: hydrALAZINE HCL 25 MG TABLET PO SCH (11:00)
[2016-11-08] MEDS: LOSARTAN POTASSIUM 50 MG TABLET (COZAAR) PO SCH (11:01)
[2016-11-08] MEDS: CARVEDILOL 6.25 MG TABLET (COREG) PO SCH (11:02)
[2016-11-08] MEDS: MUPIROCIN 2% TOPICAL OINTMENT 22 GM TP SCH (11:03)
[2016-11-08 11:26] VITALS: BP_SYST 139
[2016-11-08 11:59] LABS: EOSINOPHILS # (AUTO) 0.4 K/uL (0.0-0.4); EOSINOPHILS % (AUTO) 1.9 % (0.0-4.0); HEMATOCRIT 33.9 % (36-48); HEMOGLOBIN 11.3 g/dL (12.0-16.0); LYMPHOCYTES # (AUTO) 0.8 K/uL (1.0-5.5); MEAN CORPUSCULAR HEMOGLOBIN 30 pg (27-31); MEAN CORPUSCULAR HGB CONC 33 % (32-36); MEAN CORPUSCULAR VOLUME 90 fL (79.0-98.0); MONOCYTES # (AUTO) 1.4 K/uL (0.0-1.0); MONOCYTES % (AUTO) 7.1 % (1.7-9.3); PLATELET COUNT (AUTO) 322 K/uL (130-430); RED BLOOD CELL COUNT(AUTO) 3.76 MIL/uL (4.2-6.2); WHITE BLOOD COUNT (AUTO) 19.7 K/uL (4.8-10.8)
[2016-11-08 12:10] LABS: CALCIUM 8.4 mg/dL (8.4-11.0); CREATININE 4.14 mg/dL (0.55-1.30); POTASSIUM 3.6 mmol/L (3.5-5.1)
[2016-11-08 12:34] LABS: NEUTROPHILS # (AUTO) 17.1 K/uL (1.8-7.7)
[2016-11-08 12:58] VITALS: BP_SYST 139
[2016-11-08 14:16] LABS: HEPATITIS A AB, IgM Negative (Negative); HEPATITIS B CORE AB, IgM Negative (Negative); HEPATITIS B SURFACE AG Negative (Negative)
[2016-11-08] MEDS ORDERED: cefTRIAXone 1 GM in D5W 50 ML IV SCH (17:45)
[2016-11-08] MEDS ORDERED: metroNIDAZOLE 500 mg/NS 100 ML IV SCH (22:00)
== END 2016-11-08 12:30 | DRG 871 ==
LOC: SED 14:04 → STU 17:01 → SMU 11-07 16:18
PROVIDERS: ADMIT Family Medicine; ATTEND Family Medicine
PROC: 5A1D60Z (ICD-10-PCS; principal; 2016-11-02)
DX: A41.9 Sepsis, unspecified organism (principal); N18.6 End stage renal disease; J69.0 Pneumonitis due to inhalation of food and vomit; J90 Pleural effusion, not elsewhere classified; R18.8 Other ascites; E44.1 Mild protein-calorie malnutrition; I13.11 Hypertensive heart and chronic kidney disease without heart failure, with stage 5 chronic kidney disease, or end stage renal disease; J98.11 Atelectasis; E11.22 Type 2 diabetes mellitus with diabetic chronic kidney disease; E87.5 Hyperkalemia; N28.1 Cyst of kidney, acquired; E78.5 Hyperlipidemia, unspecified; R16.0 Hepatomegaly, not elsewhere classified; I25.10 Atherosclerotic heart disease of native coronary artery without angina pectoris; D63.8 Anemia in other chronic diseases classified elsewhere; Z68.22 Body mass index [BMI] 22.0-22.9, adult; Z99.2 Dependence on renal dialysis; Z79.899 Other long term (current) drug therapy; Z79.82 Long term (current) use of aspirin
CPT/HCPCS: 36415; 71010; 71250-TC; 76700-TC; 80048; 80053; 80074; 82962; 83605; 83690-TC; 83880; 84484; 85007; 85025; 85027; 85610-TC; 85730-TC; 87040-TC; 87081; 90935; 90937; 93005; 96365; 96367; 96375; 97110-GP; 97530-GP; 99285; J0696; J1815; J1885; J1956; J2543; J3370; J3490; J7030; J7050; J7060

== ENCOUNTER 2017-07-12 06:12 | Emergency (ER) | payer OTHER, MEDICAID ==
[~2017-07-12] VITALS: Ht 152.4 cm; Wt 59.0 kg
[~2017-07-12 06:12] MED LIST changes: +SITA100T7 PO
[2017-07-12 06:15] VITALS: BP_SYST 125
[2017-07-12] MEDS ORDERED: LIDO30CR TP (06:38)
[2017-07-12] MEDS ORDERED: MUPI1OIN4 (06:38)
[2017-07-12] MEDS ORDERED: HYDR-1189 PO (06:38)
[2017-07-12] MEDS ORDERED: GENERLAC PO (06:38)
[2017-07-12] MEDS ORDERED: POLY17PO4 PO (06:38)
[2017-07-12] MEDS ORDERED: DEXT-81 PO (06:38)
[2017-07-12] MEDS ORDERED: ESOM40CA PO (06:38)
[2017-07-12] MEDS ORDERED: DICY10CA59 PO (06:38)
[2017-07-12] MEDS ORDERED: MORP10SO PO (06:38)
[2017-07-12] MEDS ORDERED: SILACE PO (06:38)
[2017-07-12] MEDS ORDERED: LOPE2CAP PO (06:38)
[2017-07-12 07:04] LABS: BASOPHILS # (AUTO) 0.1 K/uL (0.0-0.2); BASOPHILS % (AUTO) 0.6 % (0.0-2.0); EOSINOPHILS # (AUTO) 0.5 K/uL (0.0-0.4); HEMATOCRIT 28.2 % (36-48); HEMOGLOBIN 9.7 g/dL (12.0-16.0); MEAN CORPUSCULAR HEMOGLOBIN 31 pg (27-31); MEAN CORPUSCULAR HGB CONC 35 % (32-36); MEAN CORPUSCULAR VOLUME 91 fL (79.0-98.0); MONOCYTES # (AUTO) 0.7 K/uL (0.0-1.0); MONOCYTES % (AUTO) 7.6 % (1.7-9.3); NEUTROPHILS # (AUTO) 7.3 K/uL (1.8-7.7); NEUTROPHILS % (AUTO) 76.8 % (40.0-70.0); PLATELET COUNT (AUTO) 386 K/uL (130-430); RED BLOOD CELL COUNT(AUTO) 3.11 MIL/uL (4.2-6.2); RED CELL DISTRIBUTION WIDTH 18.8 % (9.0-15.0); WHITE BLOOD COUNT (AUTO) 9.6 K/uL (4.8-10.8)
[2017-07-12 07:24] LABS: INR 1.1 (0.8-1.2)
[2017-07-12 07:31] LABS: ALANINE AMINOTRANSFERASE 18 U/L (12-78); ALBUMIN 3.5 g/dL (3.4-4.8); ANION GAP 9 (5-15); ASPARTATE AMINOTRANSFERASE 14 U/L (10-37); CALCIUM 9.8 mg/dL (8.4-11.0); CHLORIDE 97 mmol/L (98-107); GLUCOSE 149 mg/dL (70-99); LIPASE 156 U/L (73-393); SODIUM SERUM 133 mmol/L (136-145); TOTAL BILIRUBIN 0.4 mg/dL (0.0-1.0); UREA NITROGEN, BLOOD 43 mg/dL (8-21)
[2017-07-12 07:33] LABS: POTASSIUM 7.2 mmol/L (3.5-5.1)
[2017-07-12] MEDS ORDERED: SODIUM POLYSTYRENE SULFONATE 15 GM/60 ML UDBTL PO ONE (07:45)
[2017-07-12] MEDS ORDERED: INSULIN REGULAR, HUMAN 10 UNITS/0.1 ML INJ IVP ONE (07:45)
[2017-07-12] MEDS ORDERED: SODIUM BICARBONATE 8.4% JECT 50 MEQ/50 ML SYRINGE IVP ONE (07:45)
[2017-07-12] MEDS ORDERED: CALCIUM GLUCONATE 1 GM/10 ML VIAL IVP ONE (07:45)
[2017-07-12] MEDS ORDERED: DEXTROSE 50% JECT 50 ML DISP.SYRIN IVP ONE (07:45)
[2017-07-12 09:23] VITALS: BP_SYST 129
== END 2017-07-12 09:23 | disposition home or self-care (01) ==
LOC: SED 06:12
DX: T82.838A Hemorrhage due to vascular prosthetic devices, implants and grafts, initial encounter (principal); E87.5 Hyperkalemia; E11.22 Type 2 diabetes mellitus with diabetic chronic kidney disease; N18.6 End stage renal disease; Z99.2 Dependence on renal dialysis; Z79.4 Long term (current) use of insulin; Z88.8 Allergy status to other drugs, medicaments and biological substances
CPT/HCPCS: 36415; 80053; 83690; 85025; 85610; 85730; 96374; 96375; 99284; J0610; J1815